=== PATIENT | male | born 1995 | race Caucasian/White ===

== ENCOUNTER 2017-01-05 21:18 | Emergency (ER) | payer SELFPAY ==
--- NOTE | 2017-01-05 21:33 | ED.PDOC ---
History of Present Illness - General Chief Complaint: Abdominal Pain Stated Complaint: abdomen pain Time Seen by Provider: 01/05/17 21:33 Information Source: patient Exam Limitations: no limitations - History of Present Illness Initial Comments: Giovany Rodriguez 21 y/o male stated he had been having sharp epigastric pain for the last 5 days which had subside 2 days ago but recurred after eating tonight.Denies nausea,vomiting ,diarrhea.Stated taking aspirin daily for his chronic back pain. Abdominal Pain Onset Location: epigastric Pain Radiation: no radiation Quality: intermittent, sharpness, waxing/waning Timing/Duration: other - see hpi Improving Factors: nothing Worsening Factors: movement Review of Systems - Review of Systems Constitutional: States: no symptoms reported EENTM: States: no symptoms reported Respiratory: States: no symptoms reported Cardiology: States: no symptoms reported Gastrointestinal/Abdominal: States: see HPI Musculoskeletal: States: back pain - sacroiliac joint since 13 years ago Neurological: States: no symptoms reported Past Medical History (General) - Patient Medical History Surgical History: tonsillectomy, other - tympanostomy tubes,right elbow Family Medical History - Family History Grandparents Family History: No Known Hx Family;Other: renal CA, Skin CA Physical Exam - Physical Exam General Appearance: Alert, No apparent distress Eyes, Ears, Nose, Throat Exam: PERRL/EOMI, normal ENT inspection Neck: non-tender, supple Respiratory: chest non-tender, lungs clear, normal breath sounds Cardiovascular/Chest: normal peripheral pulses, regular rate, rhythm, no murmur Peripheral Pulses: No deficit Gastrointestinal/Abdominal: soft, tenderness - epigastrium ,no peritoneal signs Back Exam: other Extremity: no pedal edema, no calf tenderness Neurologic: no motor/sensory deficits, alert, normal mood/affect, oriented x 3 Skin Exam: normal color, warm/dry Progress - Progress Progress: 01/05/17 23:01 Vital Signs 01/05/17 01/05/17 21:31 22:30 Temperature 99.1 F Pulse Rate [ 79 76 left] Respiratory 18 18 Rate Blood Pressure 147/88 117/58 [left] O2 Sat by Pulse 98 97 Oximetry - Results/Orders Results/Orders: Laboratory Tests 01/05/17 01/05/17 21:45 21:45 WBC 6.3 RBC 4.85 Hgb 15.1 Hct 44.0 MCV 90.7 MCH 31.2 H MCHC 34.4 RDW 13.7 Plt Count 294 MPV 7.7 Absolute Neuts (auto) 3.50 Absolute Lymphs (auto) 2.00 Absolute Monos (auto) 0.60 Absolute Eos (auto) 0.10 Absolute Basos (auto) 0.00 Neutrophils % 55.4 Lymphocytes % 32.2 Monocytes % 10.0 H Eosinophils % 1.7 Basophils % 0.7 Sodium 141 Potassium 3.8 Chloride 104 Carbon Dioxide 30 Anion Gap 10.8 L BUN 18 Creatinine 0.84 BUN/Creatinine Ratio 21.4 H Random Glucose 88 Serum Osmolality 282.6 Calcium 9.7 Total Bilirubin 0.4 AST 22 ALT 20 Alkaline Phosphatase 117 Serum Total Protein 7.9 Albumin 4.6 Globulin 3.3 Albumin/Globulin Ratio 1.4 Lipase 25 Departure - Departure Clinical Impression: Gastritis Qualifiers: Gastritis type: other gastritis Chronicity: unspecified Gastritis bleeding: without bleeding Qualified Code(s): K29.60 - Other gastritis without bleeding Time of Disposition: 23:12 Disposition: Discharge to Home or Self Care Condition: Good Departure Forms: ED Discharge - Pt. Copy, Patient Portal Self Enrollment Instructions: DI for Gastritis, Moody Diet, Gastritis, Gastritis (Alternative Therapy) Prescriptions: Sucralfate Suspension [Carafate Suspension] 2 tsp PO QID #1 bottle Tramadol HCl 50 mg PO TID PRN #30 tab PRN Reason: Pain Home Medications: Ambulatory Orders Sucralfate Suspension [Carafate Suspension] 2 tsp PO QID #1 bottle 01/05/17 Tramadol HCl 50 mg PO TID PRN #30 tab 01/05/17 Additional Instructions: Take Zantac-75 (2 tablets am/pm for 2 months) Return to emergency room as needed -over the counter medication;Avoid aspirin,nsaid,alcoholic bverages
[2017-01-05] MEDS ORDERED: LACTATED RINGERS 1,000 ML IVS ONE (21:34)
[2017-01-05] MEDS ORDERED: PROMETHAZINE HCL INJ 25 MG/ML VIAL IM ONE (21:34)
[2017-01-05] MEDS ORDERED: PANTOPRAZOLE INJECTION 80 MG in SODIUM CHLORIDE 0.9% 100ML 80 ML IVPB ONE (21:40)
[2017-01-05] MEDS ORDERED: SUCRALFATE 1 GM/10 ML 1 GM UD PO ONE (21:40)
[2017-01-05] MEDS ORDERED: SODIUM CHLORIDE 0.9% 100ML 100 ML IVPB ONE (21:49)
[2017-01-05] MEDS ORDERED: PANTOPRAZOLE SODIUM IV 40 MG VIAL ONE (21:49)
[2017-01-05 22:43] VITALS: O2SAT 97
[2017-01-05] MEDS ORDERED: LIDOCAINE VIS-MYLANTA 30 ML UD PO ONE (22:45)
[2017-01-05 23:35] VITALS: BP 118/71; TEMP 97.9
== END 2017-01-05 23:29 | disposition home or self-care (01) ==
LOC: ER 21:18
DX: K29.60 Other gastritis without bleeding (principal)
CPT/HCPCS: 36415; 80053; 81001; 83690; 85025; J2550; J7050; J7120